=== PATIENT | female | born 1995 | race Caucasian/White ===

== ENCOUNTER 2018-12-11 08:09 | Outpatient (CLI) | payer OTHER, SELFPAY ==
--- NOTE | 2018-12-11 09:04 | P.TNLD_ITS ---
Visit Information Visit Information Date of evaluation: 12/11/18 Primary OB Provider: Shayna Franklin Reason for Evaluation: Yes non-stress test non-stress test reason: other (Postdates) [facility] Medical History (Updated 12/11/18 @ 09:04 by hSayna Franklin MD) Anxiety (Chronic) Chlamydia (Chronic ~2013) Chicken pox (Resolved ~2000) Evaluation Evaluation Baseline heart rate: 130 Variability: Moderate (11-25) monitor accelerations: Present monitor decelerations: Absent Contraction Frequency (minutes): 5 Uterine Contraction Intensity: Mild Category of Tracing: I Diagnosis, Plan/Disposition Final Diagnosis (1) Post-dates : Current Visit: Yes Status: Acute Plan/Disposition Plan: Reactive nonstress test, patient has a follow-up appointment and 5 days she will be scheduled for induction next week OB Disposition: home
== END 2018-12-11 08:55 | disposition home or self-care (01) ==
LOC: LABOR 08:20 → OB 13:55
PROVIDERS: Visit Provider Specialist
DX: O48.0 Post-term pregnancy (principal)
CPT/HCPCS: 59025; G0378; G0379

== ENCOUNTER 2018-12-17 18:54 | Inpatient (IN) | payer OTHER, SELFPAY ==
[2018-12-17 20:31] VITALS: BP 134/85
[2018-12-17] MEDS: miSOPROStol 25 MCG TABLET VAG (21:29)
[2018-12-17 21:46] LABS: Add Manual Diff / Slide Review NO; Basophils Absolute Auto 0 /uL (0-100); Basophils Percent Auto 0.2 % (0-2); Eosinophils Absolute Auto 100 /uL (0-450); Eosinophils Percent Auto 0.7 % (2-4); Hematocrit 38.9 % (36-46); Hemoglobin 13.2 g/dL (12.0-16.0); Lymphocytes Absolute Auto 1500 /uL (1100-4500); Lymphocytes Percent Auto 16.1 % (25-40); Mean Corpuscular Hemoglobin 31.2 PG (26-34); Mean Corpuscular Volume 91.7 fL (80-100); Monocytes Absolute Auto 700 /uL (0-900); Monocytes Percent Auto 7.1 % (3-14); Neutrophils Absolute Auto 7200 /uL (1500-7000); Neutrophils Percent Auto 75.9 % (50-75); Platelet Count 147 X10^3/uL (150-400); Red Blood Cell Count 4.25 X10^6/uL (4.0-5.2); Red Cell Distribution Width 13.8 % (11.6-14.8); White Blood Cell Count 9.5 X10^3/uL (4.5-11.0)
[2018-12-18] MEDS: ZOLPIDEM 5 MG TABLET PO (01:44)
[2018-12-18] MEDS: LACTATED RINGERS 1,000 ML 100 ML IV ×2 (08:15→10:39)
--- NOTE | 2018-12-18 11:48 | P.HPOB_ITS ---
OB HPI Date/Time Date of admission: 12/18/18 Date Patient Seen: 12/18/18 Time Patient Seen: 08:00 History of Present Condition Chief complaint: : 1 Para: 0 Estimated Date of Delivery: 12/08/18 Estimated Gestational Age (weeks): 41 Narrative: Yulia Arguello is a 23 year old female admitted for postdates induction Indications Indication for induction OB: post dates History of Present care: good care, initiated at week # (11), number of visits (11) and pounds weight gain (62) Dating criteria: LMP confirmed by 1st trimester US Ultrasounds: normal mid trimester US Obstetrical complications: none Medical complications: none Preadmission Labs Blood type: B (+) positive -: Antibody screen: negative, GBS status: negative, HBsAG: negative and HIV: negative -: Rubella: immune and Varicella: immune HCAB: negative Sequential screen: Normal Quad screen: Normal Evaluation Evaluation Baseline heart rate: 120 Variability: Moderate (11-25) monitor accelerations: Present monitor decelerations: Absent Contraction Frequency (minutes): 4 Uterine Contraction Intensity: Moderate Category of Tracing: I Cervical dilation (cm): 4 Cervical effacement (%): 100 station: -1 Laboratory results: Laboratory Tests 12/17/18 12/17/18 20:20 20:20 WBC 9.5 RBC 4.25 Hgb 13.2 Hct 38.9 MCV 91.7 MCH 31.2 MCHC 34.0 RDW 13.8 Plt Count 147 L Neut % (Auto) 75.9 H Lymph % (Auto) 16.1 L [place] % (Auto) 7.1 Eos % (Auto) 0.7 L Baso % (Auto) 0.2 Neut # (Auto) 7200 H Lymph # (Auto) 1500 [place] # (Auto) 700 Eos # (Auto) 100 Baso # (Auto) 0 Blood Type B Positive Antibody Screen Negative [facility] Medical History (Updated 12/11/18 @ 09:04 by Shayna Franklin MD) Anxiety (Chronic) Chlamydia (Chronic ~2013) Chicken pox (Resolved ~2000) Social History Smoking Status: Never smoker Social History Smoking Status: Never smoker Meds Home Medications Medication Instructions Recorded Confirmed Type PNV #[id number] acid-[id number] 1 tab PO DAILY 12/17/18 12/17/18 History Allergies Allergy/AdvReac Type Severity Reaction Status Date / Time No Known Drug Allergies Allergy Verified 12/17/18 20:31 Review of Systems Review of Systems Patient denies any signs or symptoms of preeclampsia. Good movement. No rupture membranes. All systems reviewed & are unremarkable except as noted in HPI and below Exam Vital Signs (past 8 hours): Blood pressure 128/78, pulse 113, temperature 36.2? Narrative Exam Narrative: HEENT exam within normal limits. Lungs are clear to auscultation percussion. Heart is regular rate and rhythm no S3-S4 or murmurs. Abdomen is gravid. Extremities with trace edema and nontender. Objective Labs Result Diagrams: 12/17/18 20:20 Labs: Laboratory Results - last 24 hr 12/17/18 12/17/18 20:20 20:20 WBC 9.5 RBC 4.25 Hgb 13.2 Hct 38.9 MCV 91.7 MCH 31.2 MCHC 34.0 RDW 13.8 Plt Count 147 L Neut % (Auto) 75.9 H Lymph % (Auto) 16.1 L [place] % (Auto) 7.1 Eos % (Auto) 0.7 L Baso % (Auto) 0.2 Neut # (Auto) 7200 H Lymph # (Auto) 1500 [place] # (Auto) 700 Eos # (Auto) 100 Baso # (Auto) 0 Blood Type B Positive Antibody Screen Negative Assessment and Plan Assessment and Plan Assessment and Plan narrative: Patient at 41 weeks gestation admitted for Prostin followed by Pitocin induction. She went into spontaneous labor with Prostin. Anticipate vaginal delivery Time Spent with Patient Total time spent with greater than 50% in coordination of care (as documented) at patient's floor/unit and/or counseling patient:: less than 15 minutes
[2018-12-18] MEDS: CITRIC ACID/SODIUM CITRATE 15 ML SOLUTION 30 ML PO (14:44)
[2018-12-18] MEDS: OXYTOCIN 10 UNIT/ML VIAL IM (15:27)
--- NOTE | 2018-12-18 16:07 | PM.OBPRVD ---
Delivery date: 12/18/18 Intrapartal events: None Cervical ripening method: per misoprostal protocol Delivery monitor: external FHT and external uterine Route of delivery: L&D Laceration Description: None Estimated blood loss (mL): 150 Anesthesia type: Epidural Narrative: Patient was admitted for Prostin induction for postdates. She went in to labor with the Prostin. She received an epidural catheter for pain control. She had spontaneous rupture membranes with meconium staining of the fluid. heart tones category 1 to category 2 throughout labor. Patient had spontaneous vaginal delivery. The infant was placed on maternal abdomen and after the cord stopped pulsating the cord was clamped, cut, and cord bloods obtained. The placenta delivered spontaneously, intact, with 3 vessels. Both infant and mother doing well. Estimated blood loss 150 cc. [place] Baby 1: Infant gender: Male Presentation: vertex position: Right Occiput Anterior Placenta delivery description: Spontaneous cord vessel description: 3 Vessels score (1 min): 9 score (5 min): 9 Narrative: Weight 8 lb 3 oz Plan for aftercare: Routine care
[2018-12-18] MEDS: IBUPROFEN 600 MG TABLET PO (17:02)
[2018-12-19] MEDS: IBUPROFEN 600 MG TABLET PO ×2 (00:14→05:49)
[2018-12-19 07:00] LABS: Hematocrit 31.5 % (36-46); Hemoglobin 10.9 g/dL (12.0-16.0)
--- NOTE | 2018-12-19 07:53 | P.DS_ITS ---
Discharge Providers Date of admission: 12/17/18 18:54 Discharge Date: 12/19/18 Consults: 12/18/18 16:24 Consult to Magnetic Resonance Imaging Coordinator Routine Comment: Discharge provider: Shayna Franklin MD Summary Date Patient Seen: 12/19/18 Time Patient Seen: 07:49 Procedures: Prostin induction, epidural catheter, spontaneous vaginal delivery Peripartum Data Infant Delivery Method: Natural Vaginal Laceration description: None Procedures: Prostin induction, epidural catheter, spontaneous vaginal delivery complications: none 1: Gender: Male Disposition of : home Discharge Diagnosis (1) Vaginal delivery: Status: Acute Status at Discharge Cognitive/behavioral status at discharge: oriented Functional status at discharge: independent ambulation Overall status at discharge: patient is progressing back to baseline Time Spent with Patient Total time spent providing and/or coordinating discharge services: Less than 30 minutes Objective Labs Result Diagrams: 12/19/18 06:50 Labs: Laboratory Results - last 24 hr 12/19/18 06:50 Hgb 10.9 L Hct 31.5 L Exam Vital Signs (past 8 hours): Blood pressure 125/71, pulse of 94, temperature 98? Narrative Exam Narrative: Abdomen is soft, nontender. Uterus is firm, at U, nontender. Mild lochia. Extremities without edema and nontender. Patient is Rh positive and rubella immune. She will receive the Tdap prior to discharge. Discharge Plan Discharge Plan Patient Disposition: Home Discharge Med Rec/Prescriptions Prescriptions: New ibuprofen 600 mg Tablet 600 mg PO Q6HR PRN (Reason: Pain, Mild (1-3)) Qty: 30 RF: 0 Continued PNV #[id number] acid-omega3 1 tab PO DAILY RF: 0 Follow up/Referrals: Shayna Franklin MD [Physician] - 1 Month Provider Discharge Instructions Diet: Regular Activity: Nothing in vagina for 4 weeks Skin/Wound/Dressing Care Report to your healthcare provider any signs of infection, such as:: chills, fever and increased pain Discharge Data Attending Provider: Shayna Franklin Admit Date/Time: 12/17/18 18:54
[2018-12-19] MEDS: PRENATAL VIT,CALC/IRON/FOLIC 1 TABLET 1 TAB PO (09:20)
[2018-12-19] MEDS: DOCUSATE 250 MG CAPSULE PO (09:20)
[2018-12-19 14:46] VITALS: BP 138/82; PULSE 85; RESP 16; TEMP 36.6
== END 2018-12-19 15:43 | disposition home or self-care (01) | DRG 807 ==
PROVIDERS: Admitting Provider Specialist; Visit Provider Specialist
DX: O48.0 Post-term pregnancy (principal); Z37.0 Single live birth; O77.0 Labor and delivery complicated by meconium in amniotic fluid; Z3A.41 41 weeks gestation of pregnancy
CPT/HCPCS: 01967; 36415; 59050; 59410; 85014; 85018; 85025; 86850; 86900; 86901; G0379; J2590

== ENCOUNTER 2019-06-23 10:14 | Emergency (ER) | payer OTHER, SELFPAY ==
[2019-06-23 10:18] VITALS: BP 126/78; PULSE 98; RESP 16; TEMP 36.4; O2SAT 100
--- NOTE | 2019-06-23 13:01 | ED.ANXIETY ---
HPI - Anxiety <GUICHO Valderrama-BC - Last Filed: 06/23/19 15:32> General Chief Complaint: Anxiety Stated Complaint: anxiety, vomiting, lightheadedness Time Seen by Provider: 06/23/19 12:22 Source: patient Mode of arrival: Ambulatory Limitations: no limitations History of Present Illness HPI narrative: The patient is a 24-year-old female current smoker who presents with her fiance and 6-month-old child for chief complaint of anxiety. She states she has had issues with anxiety throughout her life, was on medication which she was a teenager. She states that her anxiety started getting worse in March. She denies any thoughts of hurting herself or anybody else. She states when she feels anxious she gets nauseous, feels like her throat is tightening up. She has tried to get help through [facility], but feels as though she is making progress. She states she socially drinks alcohol a few times a week, does not use any recreational drugs. She does not want any medication right now as she is . She is not sure what she wants to obtain from her emergency department visit today. Related Data Home Medications Medication Instructions Recorded Confirmed Fish Oil 1 cap PO DAILY 06/23/19 06/23/19 Vitamin B-12 1 tab PO DAILY 06/23/19 06/23/19 Vitamin D3 1 cap PO DAILY 06/23/19 06/23/19 iron 1 tab PO DAILY 06/23/19 06/23/19 Previous Rx's Medication Instructions Recorded Double Electric breast Pump and #1 each 12/27/18 Supplies sertraline See Rx Instructions .ROUTE 06/23/19 .COMPLEX #30 tab Allergies Allergy/AdvReac Type Severity Reaction Status Date / Time No Known Drug Allergies Allergy Verified 01/17/19 09:22 Review of Systems <ELISA ValderramaBC - Last Filed: 06/23/19 15:32> Review of Systems Narrative: GENERAL: See HPI HEENT: Denies sinus pain, ear pain, sore throat, difficulty swallowing, dizziness. RESPIRATORY: Denies dyspnea, cough, wheezing, hemoptysis, sputum. CARDIOVASCULAR: Denies chest pain, palpitations, orthopnea, edema, GASTROINTESTINAL: Denies nausea, vomiting, abdominal pain, diarrhea, constipation, melena. : Denies dysuria, frequency, incontinence, hematuria, urinary retention. MUSCULOSKELETAL: denies weakness, joint pain, or bony pain SKIN: Denies rash, skin lesions, or other NEUROLOGIC: Denies weakness, headache, numbness, change in speech, confusion, seizures, incoordination. PSYCHIATRIC: See HPI 12 point review of systems is negative except for those stated above Patient History <MORGAN Valderrama - Last Filed: 06/23/19 15:32> Medical History Anxiety (Chronic) Chicken pox (Resolved ~2000) Chlamydia (Chronic ~2013) Vaginal delivery (Inactive) Social History Smoking Status: Current every day smoker Smoking Status: Current every day smoker tobacco type: vaping alcohol intake frequency: a few times a week Alcohol type: beer Substance Use Type: does not use Exam <MORGAN Valderrama - Last Filed: 06/23/19 15:32> Narrative Exam Narrative: GENERAL: This is a well-nourished, well-developed patient, in no acute distress HEAD: Atraumatic. Normocephalic. No temporal or scalp tenderness. EYES: Pupils equal round and reactive. Extraocular motions intact. No scleral icterus. No injection or drainage. ENT: Nose without bleeding, purulent drainage or septal hematoma. Throat without erythema, tonsillar hypertrophy or exudate. Uvula midline. Airway patent. NECK: Trachea midline. No JVD or lymphadenopathy. Supple, nontender, no meningeal signs. CARDIOVASCULAR: Regular rate and rhythm RESPIRATORY: Clear to auscultation. Breath sounds equal bilaterally. No wheezes, rales, or rhonchi. GASTROINTESTINAL: Abdomen soft, non-tender, nondistended. No hepato-splenomegaly, or palpable masses. No guarding. EXTREMITIES: No clubbing, cyanosis, or edema. No joint tenderness, effusion, or edema noted. BACK: Nontender without deformity or crepitance. No flank tenderness. NEURO: AOx3. Appears anxious at times, denies SI, HI alert oriented and appropriate in the emergency department SKIN: No rash or erythema. Initial Vital Signs Initial Vital Signs: Vital Signs Temperature 97.5 F L 06/23/19 10:18 Pulse Rate 98 H 06/23/19 10:18 Respiratory Rate 16 06/23/19 10:18 Blood Pressure 126/78 06/23/19 10:18 Pulse Oximetry 100 06/23/19 10:18 <Zeenat Brandt DO - Last Filed: 06/23/19 19:57> Initial Vital Signs Initial Vital Signs: Vital Signs Temperature 97.5 F L 06/23/19 10:18 Pulse Rate 98 H 06/23/19 10:18 Respiratory Rate 16 06/23/19 10:18 Blood Pressure 126/78 06/23/19 10:18 Pulse Oximetry 100 06/23/19 10:18 Scores <MORGAN Valderrama - Last Filed: 06/23/19 15:32> GCS Yousif coma scale eye opening: Spontaneous Yousif coma scale verbal response: Orientated [place] coma scale motor response: Obey commands Yousif coma scale total score: 15 Course <MORGAN Valderrama - Last Filed: 06/23/19 15:32> Orders Ordered: ED Orders 06/23/19 12:42 Consult to [facility] [place] - Transportation Dispatch Manager Stat 06/23/19 12:58 Complete Blood Count AUTO DIFF Stat Comprehensive Metabolic Panel Stat Ethanol (ETOH) Stat Thyroid Stimulating Hormone Stat 06/23/19 13:05 Test Urine Stat UA Complete [Urinalysis and Microscopic] Stat Urine Drug Screen, Rapid Stat Vital Signs Vital signs: Vital Signs - 8 hr 06/23/19 10:18 Temperature 97.5 F L Pulse Rate 98 H Respiratory Rate 16 Blood Pressure 126/78 Pulse Oximetry 100 <Zeenat Brandt DO - Last Filed: 06/23/19 19:57> Orders Ordered: ED Orders 06/23/19 12:42 Consult to [facility] [place] - Transportation Dispatch Manager Stat 06/23/19 12:58 Complete Blood Count AUTO DIFF Stat Comprehensive Metabolic Panel Stat Ethanol (ETOH) Stat Thyroid Stimulating Hormone Stat 06/23/19 13:05 Test Urine Stat UA Complete [Urinalysis and Microscopic] Stat Urine Drug Screen, Rapid Stat Vital Signs Vital signs: Vital Signs - 8 hr 06/23/19 10:18 Temperature 97.5 F L Pulse Rate 98 H Respiratory Rate 16 Blood Pressure 126/78 Pulse Oximetry 100 MDM - Anxiety <MORGAN Valderrama - Last Filed: 06/23/19 15:32> Lab Data Result diagrams: 06/23/19 12:58 06/23/19 12:58 Labs: Lab Results 06/23/19 06/23/19 06/23/19 Range/Units 12:58 12:58 12:58 WBC 10.1 (4.5-11.0) X10^3/uL RBC 4.51 (4.0-5.2) X10^6/uL Hgb 14.1 (12.0-16.0) g/dL Hct 40.8 (36-46) % MCV 90.5 (80-100) fL MCH 31.3 (26-34) PG MCHC 34.6 (30-36) % RDW 12.5 (11.6-14.8) % Plt Count 282 (150-400) X10^3/uL Neut % (Auto) 79.0 H (50-75) % Lymph % (Auto) 17.1 L (25-40) % [place] % (Auto) 3.3 (3-14) % Eos % (Auto) 0.1 L (2-4) % Baso % (Auto) 0.5 (0-2) % Neut # (Auto) 8000 H (7056-3629) /uL Lymph # (Auto) 1700 (4659-0051) /uL [place] # (Auto) 300 (0-900) /uL Eos # (Auto) 0 (0-450) /uL Baso # (Auto) 0 (0-100) /uL Sodium 138 (137-145) mmol/L Potassium 4.1 (3.4-5.1) mmol/L Chloride 101 (98-107) mmol/L Carbon Dioxide 25 (22-32) mmol/L BUN 20 H (7-17) mg/dL Creatinine 0.90 (0.52-1.04) mg/dL Estimated GFR > 60.0 (>60) mL/min BUN/Creatinine Ratio 22.2 H (6-22) Glucose 116 H (70-100) mg/dL Calcium 10.1 (8.4-10.2) mg/dL Total Bilirubin 0.5 (0.2-1.3) mg/dL AST 31 (14-36) IU/L ALT 25 (<35) IU/L Alkaline Phosphatase 85 (38-126) U/L Total Protein 8.5 H (6.3-8.2) g/dL Albumin 5.2 H (3.5-5.0) g/dL Globulin 3.3 (1.7-4.1) g/dL Albumin/Globulin Ratio 1.6 (1.0-2.8) TSH 1.13 (0.47-4.68) uIU/mL Urine Color Urine Appearance Urine pH (4.5-8.0) Ur Specific [place] (1.000-1.035) Urine Protein (Negative) Urine Glucose (UA) (Negative) g/dL Urine Ketones (NEGATIVE) Urine Occult Blood (Negative) Urine Nitrate (Negative) Urine Bilirubin (NEGATIVE) Urine Urobilinogen (0.2) E.U./dL Ur Leukocyte Esterase (NEGATIVE) Urine RBC (0-5/HPF) Urine WBC (0-5/HPF) Urine Bacteria (None) Ur Culture Indicated? Micro UA Comment Urine Test (Negative) U Opiates 300ng/mL cut (Negative) Ur Oxycodone Screen (Negative) Urine Methadone Screen (Negative) Ur Barbiturates Screen (Negative) U Tricyclic Antidepress (Negative) Ur Phencyclidine Scrn (Negative) Ur Amphetamines Screen (Negative) U Methamphetamines Scrn (Negative) Ur MDMA Scrn (Ecstasy) (Negative) U Benzodiazepines Scrn (Negative) Urine Cocaine Screen (Negative) U Marijuana (THC) Screen (Negative) Ethyl Alcohol < 10 ( - 10) mg/dL 06/23/19 06/23/19 06/23/19 Range/Units 13:05 13:05 13:05 WBC (4.5-11.0) X10^3/uL RBC (4.0-5.2) X10^6/uL Hgb (12.0-16.0) g/dL Hct (36-46) % MCV (80-100) fL MCH (26-34) PG MCHC (30-36) % RDW (11.6-14.8) % Plt Count (150-400) X10^3/uL Neut % (Auto) (50-75) % Lymph % (Auto) (25-40) % [place] % (Auto) (3-14) % Eos % (Auto) (2-4) % Baso % (Auto) (0-2) % Neut # (Auto) (9043-7734) /uL Lymph # (Auto) (4841-2326) /uL [place] # (Auto) (0-900) /uL Eos # (Auto) (0-450) /uL Baso # (Auto) (0-100) /uL Sodium (137-145) mmol/L Potassium (3.4-5.1) mmol/L Chloride (98-107) mmol/L Carbon Dioxide (22-32) mmol/L BUN (7-17) mg/dL Creatinine (0.52-1.04) mg/dL Estimated GFR (>60) mL/min BUN/Creatinine Ratio (6-22) Glucose (70-100) mg/dL Calcium (8.4-10.2) mg/dL Total Bilirubin (0.2-1.3) mg/dL AST (14-36) IU/L ALT (<35) IU/L Alkaline Phosphatase (38-126) U/L Total Protein (6.3-8.2) g/dL Albumin (3.5-5.0) g/dL Globulin (1.7-4.1) g/dL Albumin/Globulin Ratio (1.0-2.8) TSH (0.47-4.68) uIU/mL Urine Color Yellow Urine Appearance Clear Urine pH 6.5 (4.5-8.0) Ur Specific [place] <=1.005 (1.000-1.035) Urine Protein Negative (Negative) Urine Glucose (UA) Negative (Negative) g/dL Urine Ketones Negative (NEGATIVE) Urine Occult Blood Negative (Negative) Urine Nitrate Negative (Negative) Urine Bilirubin Negative (NEGATIVE) Urine Urobilinogen 0.2 (0.2) E.U./dL Ur Leukocyte Esterase Negative (NEGATIVE) Urine RBC None seen (0-5/HPF) Urine WBC None seen (0-5/HPF) Urine Bacteria None seen (None) Ur Culture Indicated? Cult not indicated Micro UA Comment Microscopic normal Urine Test Negative (Negative) U Opiates 300ng/mL cut Negative (Negative) Ur Oxycodone Screen Negative (Negative) Urine Methadone Screen Negative (Negative) Ur Barbiturates Screen Negative (Negative) U Tricyclic Antidepress Negative (Negative) Ur Phencyclidine Scrn Negative (Negative) Ur Amphetamines Screen Negative (Negative) U Methamphetamines Scrn Negative (Negative) Ur MDMA Scrn (Ecstasy) Negative (Negative) U Benzodiazepines Scrn Negative (Negative) Urine Cocaine Screen Negative (Negative) U Marijuana (THC) Screen Negative (Negative) Ethyl Alcohol ( - 10) mg/dL MDM Narrative Medical decision making narrative: The patient is a 24-year-old female who presents with a chief complaint of anxiety. She is active duty [employer], has been having trouble accessing care through the [employer]. She is medically clear, not anemic, normal TSH. Drug screen negative. I did speak with Dr. Brandt in the emergency department as she later decided that she would like to start medication. Elected to use sertraline given its safety profile for . The patient adamantly denies any thoughts of hurting herself or anybody else. I discussed at length the importance of following up with primary care provider as well as his psychiatric order, probable therapist. I discussed at length strict return precautions for any acute concerns such as thoughts of hurting herself or anybody else the patient states accordance and states she will do that. She is given contact information for the crisis line, [facility], etcetera. Patient states she can be safe at home, has no questions or concerns. She states she will follow up with her primary care provider, try to seek a psychiatric prescriber and a therapist. Patient and fiance have no questions or concerns upon discharge and states understanding of return precautions as well as follow-up care. <Zeenat Brandt, DO - Last Filed: 06/23/19 19:57> Lab Data Attestation: I reviewed the patient's lab results. Labs: Lab Results 06/23/19 06/23/19 06/23/19 Range/Units 12:58 12:58 12:58 WBC 10.1 (4.5-11.0) X10^3/uL RBC 4.51 (4.0-5.2) X10^6/uL Hgb 14.1 (12.0-16.0) g/dL Hct 40.8 (36-46) % MCV 90.5 (80-100) fL MCH 31.3 (26-34) PG MCHC 34.6 (30-36) % RDW 12.5 (11.6-14.8) % Plt Count 282 (150-400) X10^3/uL Neut % (Auto) 79.0 H (50-75) % Lymph % (Auto) 17.1 L (25-40) % [place] % (Auto) 3.3 (3-14) % Eos % (Auto) 0.1 L (2-4) % Baso % (Auto) 0.5 (0-2) % Neut # (Auto) 8000 H (6291-4826) /uL Lymph # (Auto) 1700 (8378-0149) /uL [place] # (Auto) 300 (0-900) /uL Eos # (Auto) 0 (0-450) /uL Baso # (Auto) 0 (0-100) /uL Sodium 138 (137-145) mmol/L Potassium 4.1 (3.4-5.1) mmol/L Chloride 101 (98-107) mmol/L Carbon Dioxide 25 (22-32) mmol/L BUN 20 H (7-17) mg/dL Creatinine 0.90 (0.52-1.04) mg/dL Estimated GFR > 60.0 (>60) mL/min BUN/Creatinine Ratio 22.2 H (6-22) Glucose 116 H (70-100) mg/dL Calcium 10.1 (8.4-10.2) mg/dL Total Bilirubin 0.5 (0.2-1.3) mg/dL AST 31 (14-36) IU/L ALT 25 (<35) IU/L Alkaline Phosphatase 85 (38-126) U/L Total Protein 8.5 H (6.3-8.2) g/dL Albumin 5.2 H (3.5-5.0) g/dL Globulin 3.3 (1.7-4.1) g/dL Albumin/Globulin Ratio 1.6 (1.0-2.8) TSH 1.13 (0.47-4.68) uIU/mL Urine Color Urine Appearance Urine pH (4.5-8.0) Ur Specific [place] (1.000-1.035) Urine Protein (Negative) Urine Glucose (UA) (Negative) g/dL Urine Ketones (NEGATIVE) Urine Occult Blood (Negative) Urine Nitrate (Negative) Urine Bilirubin (NEGATIVE) Urine Urobilinogen (0.2) E.U./dL Ur Leukocyte Esterase (NEGATIVE) Urine RBC (0-5/HPF) Urine WBC (0-5/HPF) Urine Bacteria (None) Ur Culture Indicated? Micro UA Comment Urine Test (Negative) U Opiates 300ng/mL cut (Negative) Ur Oxycodone Screen (Negative) Urine Methadone Screen (Negative) Ur Barbiturates Screen (Negative) U Tricyclic Antidepress (Negative) Ur Phencyclidine Scrn (Negative) Ur Amphetamines Screen (Negative) U Methamphetamines Scrn (Negative) Ur MDMA Scrn (Ecstasy) (Negative) U Benzodiazepines Scrn (Negative) Urine Cocaine Screen (Negative) U Marijuana (THC) Screen (Negative) Ethyl Alcohol < 10 ( - 10) mg/dL 06/23/19 06/23/19 06/23/19 Range/Units 13:05 13:05 13:05 WBC (4.5-11.0) X10^3/uL RBC (4.0-5.2) X10^6/uL Hgb (12.0-16.0) g/dL Hct (36-46) % MCV (80-100) fL MCH (26-34) PG MCHC (30-36) % RDW (11.6-14.8) % Plt Count (150-400) X10^3/uL Neut % (Auto) (50-75) % Lymph % (Auto) (25-40) % [place] % (Auto) (3-14) % Eos % (Auto) (2-4) % Baso % (Auto) (0-2) % Neut # (Auto) (2844-1218) /uL Lymph # (Auto) (7496-8113) /uL [place] # (Auto) (0-900) /uL Eos # (Auto) (0-450) /uL Baso # (Auto) (0-100) /uL Sodium (137-145) mmol/L Potassium (3.4-5.1) mmol/L Chloride (98-107) mmol/L Carbon Dioxide (22-32) mmol/L BUN (7-17) mg/dL Creatinine (0.52-1.04) mg/dL Estimated GFR (>60) mL/min BUN/Creatinine Ratio (6-22) Glucose (70-100) mg/dL Calcium (8.4-10.2) mg/dL Total Bilirubin (0.2-1.3) mg/dL AST (14-36) IU/L ALT (<35) IU/L Alkaline Phosphatase (38-126) U/L Total Protein (6.3-8.2) g/dL Albumin (3.5-5.0) g/dL Globulin (1.7-4.1) g/dL Albumin/Globulin Ratio (1.0-2.8) TSH (0.47-4.68) uIU/mL Urine Color Yellow Urine Appearance Clear Urine pH 6.5 (4.5-8.0) Ur Specific [place] <=1.005 (1.000-1.035) Urine Protein Negative (Negative) Urine Glucose (UA) Negative (Negative) g/dL Urine Ketones Negative (NEGATIVE) Urine Occult Blood Negative (Negative) Urine Nitrate Negative (Negative) Urine Bilirubin Negative (NEGATIVE) Urine Urobilinogen 0.2 (0.2) E.U./dL Ur Leukocyte Esterase Negative (NEGATIVE) Urine RBC None seen (0-5/HPF) Urine WBC None seen (0-5/HPF) Urine Bacteria None seen (None) Ur Culture Indicated? Cult not indicated Micro UA Comment Microscopic normal Urine Test Negative (Negative) U Opiates 300ng/mL cut Negative (Negative) Ur Oxycodone Screen Negative (Negative) Urine Methadone Screen Negative (Negative) Ur Barbiturates Screen Negative (Negative) U Tricyclic Antidepress Negative (Negative) Ur Phencyclidine Scrn Negative (Negative) Ur Amphetamines Screen Negative (Negative) U Methamphetamines Scrn Negative (Negative) Ur MDMA Scrn (Ecstasy) Negative (Negative) U Benzodiazepines Scrn Negative (Negative) Urine Cocaine Screen Negative (Negative) U Marijuana (THC) Screen Negative (Negative) Ethyl Alcohol ( - 10) mg/dL MDM Narrative Medical decision making narrative: Patient case was discussed with myself. Patient is not suicidal or homicidal but does have anxiety. She is getting sleep. Initially was not interested medications but then became more interested she is . Discussed that Zoloft would likely be the safest option while lactating. Also given options for follow-up off for mental health care. And patient encouraged to return if any new or worsening symptoms. Also counseled on activating side effects of Zoloft and SSRIs when initially starting them and if she is having any worsening symptoms to stop it immediately and return. Discharge Plan Departure Patient Disposition: Home Clinical Impression: Acute anxiety Discharge Date/Time: 06/23/19 15:38 Instructions: Anxiety and Panic Attacks (Alternative Therapy), DI for Anxiety -- Adult Activity Restrictions/Additional Instructions: I sent a prescription for generic Zoloft to [facility] in [place] Please take half tab by mouth once per day for 1 week then increase to 1 tab Please follow-up with primary care provider in the next few days. You may benefit from seeing a therapist as well as seeing somebody who would help prescribed further psychiatric medication. As discussed, please come back to the emergency department for any acute concerns such as thoughts of hurting yourself, suicidal plan etcetera Prescriptions: New sertraline 50 mg tablet See Rx Instructions .ROUTE .COMPLEX Qty: 30 RF: 0 No Action (DME) Double Electric breast Pump and Supplies See Rx Instructions .ROUTE .MEDSUPPLY Qty: 1 RF: 0 Fish Oil 1 cap PO DAILY RF: 0 Vitamin B-12 1 tab PO DAILY RF: 0 Vitamin D3 1 cap PO DAILY RF: 0 iron 1 tab PO DAILY RF: 0 Referrals: [facility] [Provider Group] [facility] [Outside] Stand Alone Forms: Work Release Note
[2019-06-23 13:04] LABS: Add Manual Diff / Slide Review NO; Basophils Absolute Auto 0 /uL (0-100); Basophils Percent Auto 0.5 % (0-2); Eosinophils Absolute Auto 0 /uL (0-450); Eosinophils Percent Auto 0.1 % (2-4); Hematocrit 40.8 % (36-46); Hemoglobin 14.1 g/dL (12.0-16.0); Lymphocytes Absolute Auto 1700 /uL (1100-4500); Lymphocytes Percent Auto 17.1 % (25-40); Mean Corpuscular HGB Conc 34.6 % (30-36); Mean Corpuscular Hemoglobin 31.3 PG (26-34); Mean Corpuscular Volume 90.5 fL (80-100); Monocytes Absolute Auto 300 /uL (0-900); Monocytes Percent Auto 3.3 % (3-14); Neutrophils Absolute Auto 8000 /uL (1500-7000); Platelet Count 282 X10^3/uL (150-400); Red Blood Cell Count 4.51 X10^6/uL (4.0-5.2); Red Cell Distribution Width 12.5 % (11.6-14.8); White Blood Cell Count 10.1 X10^3/uL (4.5-11.0)
[2019-06-23 13:16] LABS: Alanine Aminotransferase 25 IU/L (<35); Albumin 5.2 g/dL (3.5-5.0); Albumin Globulin Ratio 1.6 (1.0-2.8); Alkaline Phosphatase 85 U/L (38-126); Aspartate Aminotransferase 31 IU/L (14-36); BUN Creatinine Ratio 22.2 (6-22); Bilirubin Total 0.5 mg/dL (0.2-1.3); Blood Urea Nitrogen 20 mg/dL (7-17); Calcium 10.1 mg/dL (8.4-10.2); Carbon Dioxide 25 mmol/L (22-32); Chloride 101 mmol/L (98-107); Estimated Glomerular Filt Rate > 60.0 mL/min (>60); Ethanol (ETOH) < 10 mg/dL; Globulin 3.3 g/dL (1.7-4.1); Glucose 116 mg/dL (70-100); HEMOLYSIS < 15 (0-50); Potassium 4.1 mmol/L (3.4-5.1); Sodium 138 mmol/L (137-145); Total Protein 8.5 g/dL (6.3-8.2)
--- NOTE | 2019-06-23 13:21 | PC.NURSE ---
patient stepped out to vending machine.
[2019-06-23 13:42] LABS: Bacteria Urine None Seen; RBC Urine None Seen (0-5/HPF); WBC Urine None Seen (0-5/HPF)
[2019-06-23 13:45] LABS: Appearance Urine UA CLEAR; Bilirubin Urine UA NEGATIVE (NEGATIVE); Color Urine UA YELLOW; Glucose Urine UA NEGATIVE (Negative); Ketones Urine UA NEGATIVE (NEGATIVE); Leukocyte Esterase Urine UA NEGATIVE (NEGATIVE); Nitrite Urine UA NEGATIVE (Negative); Occult Blood Urine UA NEGATIVE (Negative); Protein Urine UA NEGATIVE (Negative); Specific Gravity Urine UA <=1.005 (1.000-1.035); Urobilinogen Urine UA 0.2 E.U./dL (0.2)
[2019-06-23 13:48] LABS: pH Urine UA 6.5 (4.5-8.0)
[2019-06-23 13:51] LABS: Thyroid Stimulating Hormone 1.13 uIU/mL (0.47-4.68)
[2019-06-23 13:51] LABS: UR Morphine/Opiate cutoff 300 Negative (Negative); Ur Creatinine Normal (Normal); Ur Specific Gravity Normal (Normal); Urine Amphetamines Negative (Negative); Urine Cocaine Negative (Negative); Urine MDMA Negative (Negative); Urine Methamphetamines Negative (Negative); Urine Phencyclidine Negative (Negative); Urine Tetrahydrocannabinol Negative (Negative); Urine pH Normal (Normal)
[2019-06-23 13:52] LABS: Culture Indicated Urine Cult Not Indicated; Pregnancy Test Urine Negative (Negative); Urine Barbiturates Negative (Negative); Urine Benzodiazepines Negative (Negative); Urine Comments Microscopic Normal; Urine Methadone Negative (Negative); Urine Oxycodone Negative (Negative); Urine Tricyclic Antidepressant Negative (Negative)
== END 2019-06-23 15:38 | disposition home or self-care (01) ==
PROVIDERS: Emergency Provider Nurse Practitioner Family
DX: F41.9 Anxiety disorder, unspecified (principal)
CPT/HCPCS: 36415; 80053; 80305; 80320; 81001; 81025; 84443; 85025; 99281

== ENCOUNTER 2019-06-26 09:06 | Emergency (ER) | payer OTHER, SELFPAY ==
[2019-06-26 09:25] VITALS: BP 124/63; PULSE 80; RESP 16; TEMP 36.2; O2SAT 99; BMI 27.4
[2019-06-26 11:06] LABS: Add Manual Diff / Slide Review NO; Basophils Absolute Auto 0 /uL (0-100); Basophils Percent Auto 0.6 % (0-2); Eosinophils Absolute Auto 0 /uL (0-450); Eosinophils Percent Auto 0.4 % (2-4); Hematocrit 41.3 % (36-46); Hemoglobin 14.2 g/dL (12.0-16.0); Lymphocytes Absolute Auto 1800 /uL (1100-4500); Lymphocytes Percent Auto 23.3 % (25-40); Mean Corpuscular HGB Conc 34.3 % (30-36); Mean Corpuscular Hemoglobin 31.1 PG (26-34); Mean Corpuscular Volume 90.9 fL (80-100); Monocytes Absolute Auto 400 /uL (0-900); Monocytes Percent Auto 5.1 % (3-14); Neutrophils Absolute Auto 5400 /uL (1500-7000); Neutrophils Percent Auto 70.6 % (50-75); Platelet Count 273 X10^3/uL (150-400); Red Blood Cell Count 4.55 X10^6/uL (4.0-5.2); Red Cell Distribution Width 12.7 % (11.6-14.8); White Blood Cell Count 7.6 X10^3/uL (4.5-11.0)
[2019-06-26 11:14] LABS: INR 1.1 (0.9-1.3); Prothrombin Time 12.5 SECONDS (10.1-12.7)
[2019-06-26 11:17] LABS: PTT Partial Thromboplastin Tim 34 SECONDS (26.4-36.2)
[2019-06-26 11:18] LABS: Alanine Aminotransferase 23 IU/L (<35); Albumin 4.9 g/dL (3.5-5.0); Albumin Globulin Ratio 1.5 (1.0-2.8); Alkaline Phosphatase 82 U/L (38-126); Aspartate Aminotransferase 32 IU/L (14-36); Bilirubin Total 0.6 mg/dL (0.2-1.3); Blood Urea Nitrogen 16 mg/dL (7-17); Carbon Dioxide 26 mmol/L (22-32); Chloride 103 mmol/L (98-107); Estimated Glomerular Filt Rate > 60.0 mL/min (>60); Globulin 3.2 g/dL (1.7-4.1); Glucose 71 mg/dL (70-100); HEMOLYSIS < 15 (0-50); Lipase 210 U/L (23-300); Potassium 3.9 mmol/L (3.4-5.1); Sodium 141 mmol/L (137-145); Total Protein 8.1 g/dL (6.3-8.2)
[2019-06-26 13:37] VITALS: BP 116/70; PULSE 88; RESP 16; TEMP 36.2; O2SAT 98
--- NOTE | 2019-06-26 14:28 | ED.NAVMDI ---
HPI - Nausea/Vomiting/Diarrhea General Chief complaint: Nausea/Vomiting/Diarrhea Stated complaint: diarrhea,anxiety,vomiting Time Seen by Provider: 06/26/19 09:08 Source: patient Mode of arrival: Ambulatory Limitations: no limitations History of Present Illness HPI Narrative: 24-year-old female daily smoker with history of anxiety presents with a few days of nausea, vomiting and diarrhea. She denies any recent antibiotics, exposure to bad food or recent travel. She thinks that her symptoms may have started after starting sertraline. She denies any suicidal or homicidal ideation. She is not dizzy nor weak or lightheaded. She does admit to some occasional crampy abdominal pain MD complaint: nausea, vomiting and diarrhea Onset (ago): day(s) Description of Vomiting: food contents Description of Diarrhea: watery Associated Abdominal Pain: Yes Location of pain: diffuse Severity: moderate Quality: cramping Pain Consistency: intermittent Relieving factors: bowel movement Exacerbating factors: none Associated symptoms: nausea/vomiting Related Data Home Medications Medication Instructions Recorded Confirmed Fish Oil 1 cap PO DAILY 06/23/19 06/26/19 Vitamin B-12 1 tab PO DAILY 06/23/19 06/26/19 Vitamin D3 1 cap PO DAILY 06/23/19 06/26/19 iron 1 tab PO DAILY 06/23/19 06/26/19 Previous Rx's Medication Instructions Recorded Double Electric breast Pump and #1 each 12/27/18 Supplies sertraline See Rx Instructions .ROUTE 06/23/19 .COMPLEX #30 tab ondansetron 4 mg PO Q8H PRN #20 tab 06/26/19 Allergies Allergy/AdvReac Type Severity Reaction Status Date / Time No Known Drug Allergies Allergy Verified 06/26/19 09:25 Review of Systems Constitutional Constitutional: Denies chills, Denies fatigue, Denies fever(s), Denies frequent falls, Denies lethargy and Denies weakness Eyes Eyes: Denies change in vision, Denies eye discharge, Denies irritation and Denies loss of vision ENT Ears, Nose, Mouth, and Throat: Denies change in voice, Denies dizziness, Denies neck pain, Denies sore throat and Denies throat swelling Cardiovascular Cardiovascular: Denies chest pain, Denies irregular heart rhythm, Denies lightheadedness, Denies palpitations, Denies dyspnea, Denies dyspnea on exertion and Denies orthopnea Respiratory Respiratory: Denies cough, Denies dyspnea, Denies dyspnea on exertion and Denies wheezing Gastrointestinal Gastrointestinal: Denies change in bowel habits, Reports diarrhea, Reports nausea and Reports vomiting Genitourinary Genitourinary: Denies hematuria, Denies flank pain, Denies urinary incontinence and Denies urinary urgency Musculoskeletal Musculoskeletal: Denies back pain, Denies muscle weakness, Denies neck pain, Denies numbness and Denies tingling Integumentary/Breasts Skin/Breast: Denies pruritus, Denies erythema, Denies rash and Denies wounds Neurologic Neurologic: Denies behavioral changes, Denies confusion, Denies dizziness, Denies frequent falls, Denies loss of vision, Denies numbness, Denies tingling and Denies weakness Psychiatric Psychiatric: Denies anxiety, Denies behavioral changes, Denies confusion, Denies depression, Denies homicidal ideation and Denies suicidal ideation Endocrine Endocrine: Denies fatigue, Denies flushing and Denies palpitations Hematologic/Lymphatic Hematologic/Lymphatic: Denies easy bruising Allergic/Immunologic Allergic/Immunologic: Denies urticaria, Denies throat swelling and Denies wheezing Patient History Medical History Anxiety (Chronic) Chicken pox (Resolved ~2000) Chlamydia (Chronic ~2013) Vaginal delivery (Inactive) Social History Smoking Status: Current every day smoker Smoking Status: Current every day smoker tobacco type: vaping alcohol intake frequency: a few times a week Alcohol type: beer Substance Use Type: does not use Exam Narrative Exam Narrative: GENERAL: [24] year old patient appears stated age. Well-nourished, well-developed patient, in mild distress. HEAD: Atraumatic. Normocephalic. EYES: Pupils equal round and reactive. Extraocular motions intact. No scleral icterus. No injection or drainage. ENT: Nose without bleeding, purulent drainage. Throat without erythema, tonsillar hypertrophy or exudate. Airway patent. NECK: Trachea midline. Non tender CARDIOVASCULAR: Regular rate and rhythm without murmurs, gallops, or rubs. RESPIRATORY: Clear to auscultation. Breath sounds equal bilaterally. No wheezes, rales, or rhonchi. GASTROINTESTINAL: Abdomen soft, non-tender, nondistended. EXTREMITIES: No edema or joint tenderness. BACK: Nontender without deformity or crepitance. No flank tenderness. NEURO: AOx3. SKIN: No rash or erythema of visible areas Initial Vital Signs Initial Vital Signs: Vital Signs Temperature 97.1 F L 06/26/19 09:25 Pulse Rate 80 06/26/19 09:25 Respiratory Rate 16 06/26/19 09:25 Blood Pressure 124/63 06/26/19 09:25 Pulse Oximetry 99 06/26/19 09:25 Course Orders Ordered: ED Orders 06/26/19 10:55 Complete Blood Count AUTO DIFF Stat Comprehensive Metabolic Panel Stat Lipase Stat Partial Thromboplastin Time Stat Prothrombin Time INR Stat 06/26/19 14:19 Urine Culture Stat Urine Microscopic Stat Vital Signs Vital signs: Vital Signs - 8 hr 06/26/19 13:37 06/26/19 14:52 Temperature 97.1 F L Pulse Rate 88 78 Respiratory Rate 16 18 Blood Pressure 115/67 Blood Pressure [arm] 116/70 Pulse Oximetry 98 97 MDM - Nausea/Vomiting/Diarrhea Lab Data Result diagrams: 06/26/19 10:55 06/26/19 10:55 Labs: Lab Results 06/26/19 06/26/19 06/26/19 Range/Units 10:55 10:55 10:55 WBC 7.6 (4.5-11.0) X10^3/uL RBC 4.55 (4.0-5.2) X10^6/uL Hgb 14.2 (12.0-16.0) g/dL Hct 41.3 (36-46) % MCV 90.9 (80-100) fL MCH 31.1 (26-34) PG MCHC 34.3 (30-36) % RDW 12.7 (11.6-14.8) % Plt Count 273 (150-400) X10^3/uL Neut % (Auto) 70.6 (50-75) % Lymph % (Auto) 23.3 L (25-40) % [place] % (Auto) 5.1 (3-14) % Eos % (Auto) 0.4 L (2-4) % Baso % (Auto) 0.6 (0-2) % Neut # (Auto) 5400 (1802-0079) /uL Lymph # (Auto) 1800 (1996-7898) /uL [place] # (Auto) 400 (0-900) /uL Eos # (Auto) 0 (0-450) /uL Baso # (Auto) 0 (0-100) /uL PT 12.5 (10.1-12.7) SECONDS INR 1.1 (0.9-1.3) APTT 34 (26.4-36.2) SECONDS Sodium 141 (137-145) mmol/L Potassium 3.9 (3.4-5.1) mmol/L Chloride 103 (98-107) mmol/L Carbon Dioxide 26 (22-32) mmol/L BUN 16 (7-17) mg/dL Creatinine 1.00 (0.52-1.04) mg/dL Estimated GFR > 60.0 (>60) mL/min BUN/Creatinine Ratio 16.0 (6-22) Glucose 71 (70-100) mg/dL Calcium 10.0 (8.4-10.2) mg/dL Total Bilirubin 0.6 (0.2-1.3) mg/dL AST 32 (14-36) IU/L ALT 23 (<35) IU/L Alkaline Phosphatase 82 (38-126) U/L Total Protein 8.1 (6.3-8.2) g/dL Albumin 4.9 (3.5-5.0) g/dL Globulin 3.2 (1.7-4.1) g/dL Albumin/Globulin Ratio 1.5 (1.0-2.8) Lipase 210 (23-300) U/L Urine RBC (0-5/HPF) Urine WBC (0-5/HPF) Ur Squamous Epith Cells (0-5/HPF) Urine Bacteria (None) Ur Culture Indicated? 06/26/19 Range/Units 14:19 WBC (4.5-11.0) X10^3/uL RBC (4.0-5.2) X10^6/uL Hgb (12.0-16.0) g/dL Hct (36-46) % MCV (80-100) fL MCH (26-34) PG MCHC (30-36) % RDW (11.6-14.8) % Plt Count (150-400) X10^3/uL Neut % (Auto) (50-75) % Lymph % (Auto) (25-40) % [place] % (Auto) (3-14) % Eos % (Auto) (2-4) % Baso % (Auto) (0-2) % Neut # (Auto) (0448-3433) /uL Lymph # (Auto) (6718-8403) /uL [place] # (Auto) (0-900) /uL Eos # (Auto) (0-450) /uL Baso # (Auto) (0-100) /uL PT (10.1-12.7) SECONDS INR (0.9-1.3) APTT (26.4-36.2) SECONDS Sodium (137-145) mmol/L Potassium (3.4-5.1) mmol/L Chloride (98-107) mmol/L Carbon Dioxide (22-32) mmol/L BUN (7-17) mg/dL Creatinine (0.52-1.04) mg/dL Estimated GFR (>60) mL/min BUN/Creatinine Ratio (6-22) Glucose (70-100) mg/dL Calcium (8.4-10.2) mg/dL Total Bilirubin (0.2-1.3) mg/dL AST (14-36) IU/L ALT (<35) IU/L Alkaline Phosphatase (38-126) U/L Total Protein (6.3-8.2) g/dL Albumin (3.5-5.0) g/dL Globulin (1.7-4.1) g/dL Albumin/Globulin Ratio (1.0-2.8) Lipase (23-300) U/L Urine RBC None seen (0-5/HPF) Urine WBC 1-5/hpf (0-5/HPF) Ur Squamous Epith Cells 1-5 /hpf (0-5/HPF) Urine Bacteria Moderate (10-30) H (None) Ur Culture Indicated? Specimen cultured Point of Care Testing Test Results Negative Urine Dip Bedside Urine Glucose Negative Bedside Urine Bilirubin - Negative Bedside Urine Ketone - Negative Urine Specific [place] 1.010 Bedside Urine Occult Blood - Negative Bedside Urine pH 7.0 Bedside Urine Protein - Negative Bedside Urine Urobilinogen - Negative Bedside Urine Nitrite - Negative Bedside Urine Leukocytes + 70 Esterase Discharge Plan Departure Patient Disposition: Home Clinical Impression: Acute anxiety, Vomiting and diarrhea Discharge Date/Time: 06/26/19 14:52 Instructions: DI for Nausea -- Adult, DI for Vomiting -- Adult Activity Restrictions/Additional Instructions: 1. Drink plenty of fluids with frequent small sips. 2. For the next 24 hours a clear liquid diet is advised. After that please employ a brat diet which would include bananas, rice, apples, toast. 3. Please take medications as directed. 4. Please follow-up with your doctor in the next 1-2 days. Call the office for an appointment. 5. Please return to the emergency Department for any worsening or persistent symptoms, such as increasing pain or fever. Prescriptions: New ondansetron 4 mg tablet,disintegrating 4 mg PO Q8H PRN (Reason: nausea and vomiting) Qty: 20 RF: 0 No Action (DME) Double Electric breast Pump and Supplies See Rx Instructions .ROUTE .MEDSUPPLY Qty: 1 RF: 0 Fish Oil 1 cap PO DAILY RF: 0 Vitamin B-12 1 tab PO DAILY RF: 0 Vitamin D3 1 cap PO DAILY RF: 0 iron 1 tab PO DAILY RF: 0 sertraline 50 mg tablet See Rx Instructions .ROUTE .COMPLEX Qty: 30 RF: 0 Stand Alone Forms: Work Release Note
[2019-06-26 14:52] VITALS: BP 115/67; PULSE 78; RESP 18; O2SAT 97
[2019-06-26 14:58] LABS: RBC Urine None Seen (0-5/HPF)
[2019-06-26 15:11] LABS: Bacteria Urine Moderate (10-30); Culture Indicated Urine Specimen Cultured; Squamous Epithelial Cell Urine 1-5 /HPF (0-5/HPF); WBC Urine 1-5/HPF (0-5/HPF)
== END 2019-06-26 14:52 | disposition home or self-care (01) ==
PROVIDERS: Emergency Provider Emergency Medicine
DX: F41.9 Anxiety disorder, unspecified (principal); R11.2 Nausea with vomiting, unspecified; R19.7 Diarrhea, unspecified
CPT/HCPCS: 36415; 80053; 81003; 81015; 81025; 83690; 85025; 85610; 85730; 87077; 87086; 99283

== ENCOUNTER 2020-10-24 10:36 | Emergency (ER) | payer OTHER, SELFPAY ==
[2020-10-24 10:56] VITALS: BP 108/62; PULSE 73; RESP 16; TEMP 36.4; O2SAT 100; BMI 26.5
== END 2020-10-24 13:24 | disposition left against medical advice (07) ==
PROVIDERS: Emergency Provider Emergency Medicine
DX: R10.9 Unspecified abdominal pain (principal)
CPT/HCPCS: 99281